=== PATIENT | male | born 1960 | race Caucasian/White ===

== ENCOUNTER 2020-09-07 13:14 | Observation (INO) ==
[2020-09-07] MEDS ORDERED: Ondansetron 4 MG/2 ML VIAL IVP ONE (13:24)
[2020-09-07] MEDS ORDERED: 0.9 % Sodium Chloride 1,000 ML IVC ONE ×2 (13:24→15:05)
[2020-09-07] MEDS ORDERED: *HR* Promethazine 25 MG/ML VIAL IM ONE (13:51)
[2020-09-07 14:15] LABS: Basophils % 0.4 %; Eosinophils # 0.1 K/mcL (0.0-0.6); Eosinophils % 2.1 %; Hematocrit 33.8 % (37.5-50.1); Hemoglobin 11.3 g/dL (12.9-16.9); Immature Granulocytes % 0.4 % (0-4); Lymphocytes % 40.2 %; Mean Corpuscular HGB Conc 33.4 g/dL (31.6-35.5); Mean Corpuscular Hemoglobin 29.5 pg (28.0-33.3); Mean Corpuscular Volume 88.3 fL (83.0-100.0); Monocytes # 0.1 K/mcL (0.0-1.3); Monocytes % 3.7 %; Neutrophils # 1.3 K/mcL (1.6-8.9); Platelet Count 342 K/mcL (140-400); Red Blood Count 3.83 M/mcL (4.19-5.50); Red Cell Distribution Width 13.8 % (11.5-14.5); Segmented Neutrophils % 53.2 %; White Blood Count 2.4 K/mcL (4.3-11.1)
[2020-09-07 14:27] LABS: Alanine Aminotransferase 13 Units/L (7-52); Albumin 3.2 g/dL (3.5-5.7); Albumin/Globulin Ratio 1.1 (1.1-2.2); Alkaline Phosphatase 103 Units/L (34-104); Aspartate Amino Transferase 13 Units/L (13-39); BUN/Creatinine Ratio 27 (6-26); Bilirubin,Direct 0.2 mg/dL (0.0-0.2); Bilirubin,Indirect 0.4 mg/dL (0.0-1.0); Bilirubin,Total 0.6 mg/dL (0.3-1.0); Blood Urea Nitrogen 18 mg/dL (8-23); Carbon Dioxide 33 mEq/L (23-29); Chloride 97 mEq/L (98-107); Glucose 252 mg/dL (70-105); Lipase 34 Units/L (11-82); Magnesium 1.9 mg/dL (1.6-2.6); Osmolality,Calculated 294 (280-300); Potassium 3.7 mEq/L (3.5-5.1); Sodium 137 mEq/L (136-145); Total Protein 6.2 g/dL (6.4-8.9); eGFR For African Americans > 60 (> 60); eGFR For Non-African Americans > 60 (> 60)
[2020-09-07] MEDS ORDERED: Naloxone 0.4 MG/ML INJ IVP PRN (15:38)
[2020-09-07] MEDS ORDERED: MOM Conc 10 ML UD.LIQ PO PRN (15:38)
[2020-09-07] MEDS ORDERED: Mag Hydrox/Al Hydrox/Simeth 30 ML UDC PO PRN (15:38)
[2020-09-07] MEDS ORDERED: Ondansetron 4 MG/2 ML VIAL IVP PRN (15:38)
[2020-09-07] MEDS ORDERED: *HR* Promethazine 25 MG/ML VIAL IM PRN (15:38)
[2020-09-07] MEDS ORDERED: *HR* HYDROcodone/Acet 5/325 mg TABLET PO PRN (15:38)
[2020-09-07] MEDS ORDERED: Acetaminophen 325 MG TABLET PO PRN (15:38)
[2020-09-07] MEDS ORDERED: D5% in Water 1,000 ML IVC PRN (16:22)
[2020-09-07] MEDS ORDERED: *HR* Dextrose 50 % in Water (Vial) 50 ML VIAL IVP PRN (16:22)
[2020-09-07] MEDS ORDERED: Dextrose Gel 15 GM/37.5 ML TUBE PO PRN ×2 (16:22)
[2020-09-07] MEDS ORDERED: Metoclopramide 10 MG/2 ML VIAL IVP PRN (16:23)
[2020-09-07] MEDS ORDERED: Scopolamine Patch 1.5 MG PATCH.TD72 TD SCH (16:30)
[2020-09-07] MEDS ORDERED: *HR* FentaNYL PATCH 25 MCG PATCH TD SCH (16:30)
[2020-09-07] MEDS: Pantoprazole 40 MG VIAL IVP SCH ×2 (16:47→18:41)
[2020-09-07 18:04] LABS: Bacteria,Urine Few per hpf (None-Few); Bilirubin,Urine Negative (Negative); Blood,Urine Negative (Negative); Clarity,Urine Clear (Clear); Color,Urine Yellow (Yellow); Glucose,Urine (UA) >=1000 mg/dL (Normal); Ketones,Urine 20 mg/dL (Negative); Leukocyte Esterase,Urine Negative (Negative); Mucus,Urine Few per lpf (None-Few); Nitrite,Urine Negative (Negative); Protein,Urine 50 mg/dL (Neg-Trace); RBC,Urine 0-3 per hpf (0-3); Specific Gravity,Urine 1.028 (1.010-1.025); Squamous Epithelial Cell,Urine Few per hpf (None-Few); Urobilinogen,Urine Normal (Normal)
[2020-09-07] MEDS: 0.9 % Sodium Chloride w KCl 20 MEQ/1,000 ML MLS IVC SCH (18:40)
[2020-09-07] MEDS: *HR* Heparin 5,000 UNIT/ML VIAL SQ SCH (18:42)
[2020-09-07] MEDS: Insulin LISPRO 300 UNITS/3 ML VIAL SQ SCH ×2 (20:47→23:27)
[2020-09-08] MEDS: Pantoprazole 40 MG VIAL IVP SCH ×2 (05:03→17:55)
[2020-09-08] MEDS: *HR* Heparin 5,000 UNIT/ML VIAL SQ SCH ×2 (05:03→17:54)
[2020-09-08] MEDS: 0.9 % Sodium Chloride w KCl 20 MEQ/1,000 ML MLS IVC SCH ×3 (06:03→16:06)
[2020-09-08 06:33] LABS: Basophils % 0.4 %; Eosinophils % 1.8 %; Hematocrit 28.6 % (37.5-50.1); Immature Granulocytes % 0.4 % (0-4); Lymphocytes # 0.8 K/mcL (0.6-4.6); Lymphocytes % 33.9 %; Mean Corpuscular HGB Conc 31.8 g/dL (31.6-35.5); Mean Corpuscular Hemoglobin 28.6 pg (28.0-33.3); Mean Corpuscular Volume 89.9 fL (83.0-100.0); Mean Platelet Volume 9.4 fL (9.4-12.4); Monocytes # 0.1 K/mcL (0.0-1.3); Monocytes % 6.2 %; Neutrophils # 1.3 K/mcL (1.6-8.9); Platelet Count 295 K/mcL (140-400); Red Blood Count 3.18 M/mcL (4.19-5.50); Red Cell Distribution Width 13.7 % (11.5-14.5); Segmented Neutrophils % 57.3 %; White Blood Count 2.3 K/mcL (4.3-11.1)
[2020-09-08 06:34] LABS: Hemoglobin 9.1 g/dL (12.9-16.9)
[2020-09-08 06:51] LABS: BUN/Creatinine Ratio 25 (6-26); Blood Urea Nitrogen 18 mg/dL (8-23); Carbon Dioxide 27 mEq/L (23-29); Chloride 103 mEq/L (98-107); Glucose 174 mg/dL (70-105); Osmolality,Calculated 292 (280-300); Phosphorous 2.8 mg/dL (2.7-4.5); Potassium 4.1 mEq/L (3.5-5.1); Sodium 138 mEq/L (136-145); eGFR For African Americans > 60 (> 60); eGFR For Non-African Americans > 60 (> 60)
[2020-09-08] MEDS: Insulin LISPRO 300 UNITS/3 ML VIAL SQ SCH ×4 (09:18→21:14)
[2020-09-08] MEDS ORDERED: GI Cocktail 40 ML EACH PO ONE (11:23)
[2020-09-08] MEDS: Haloperidol Oral Conc 10 MG/5 ML UDC PO SCH ×2 (14:52→21:27)
[2020-09-08] MEDS ORDERED: Isovue-370 500 ML BOTTLE IVP ONE (16:11)
[2020-09-09] MEDS: 0.9 % Sodium Chloride w KCl 20 MEQ/1,000 ML MLS IVC SCH (02:32)
[2020-09-09] MEDS: *HR* Heparin 5,000 UNIT/ML VIAL SQ SCH (05:48)
[2020-09-09] MEDS: Pantoprazole 40 MG VIAL IVP SCH (05:49)
[2020-09-09 07:35] LABS: Basophils % 0.5 %; Hemoglobin 8.5 g/dL (12.9-16.9); Platelet Count 289 K/mcL (140-400)
[2020-09-09 07:37] LABS: Eosinophils % 1.6 %; Hematocrit 26.9 % (37.5-50.1); Immature Granulocytes % 0.5 % (0-4); Lymphocytes # 0.8 K/mcL (0.6-4.6); Lymphocytes % 41.6 %; Mean Corpuscular HGB Conc 31.6 g/dL (31.6-35.5); Mean Corpuscular Hemoglobin 29.2 pg (28.0-33.3); Mean Corpuscular Volume 92.4 fL (83.0-100.0); Mean Platelet Volume 9.4 fL (9.4-12.4); Monocytes # 0.3 K/mcL (0.0-1.3); Monocytes % 13.5 %; Neutrophils # 0.8 K/mcL (1.6-8.9); Red Blood Count 2.91 M/mcL (4.19-5.50); Segmented Neutrophils % 42.3 %; White Blood Count 1.9 K/mcL (4.3-11.1)
[2020-09-09 07:39] LABS: BUN/Creatinine Ratio 24 (6-26); Blood Urea Nitrogen 17 mg/dL (8-23); Carbon Dioxide 27 mEq/L (23-29); Chloride 105 mEq/L (98-107); Glucose 172 mg/dL (70-105); Osmolality,Calculated 294 (280-300); Potassium 4.2 mEq/L (3.5-5.1); Sodium 139 mEq/L (136-145); eGFR For African Americans > 60 (> 60); eGFR For Non-African Americans > 60 (> 60)
[2020-09-09 08:17] LABS: Platelet Estimate Normal (Normal)
[2020-09-09] MEDS: Insulin LISPRO 300 UNITS/3 ML VIAL SQ SCH ×2 (09:08→11:48)
[2020-09-09] MEDS: Haloperidol Oral Conc 10 MG/5 ML UDC PO SCH (09:09)
[2020-09-09 11:49] VITALS: BP 134/75
[2020-09-09] MEDS ORDERED: ALPRAZolam 0.25 MG TABLET PO PRN (12:59)
== END 2020-09-09 14:51 | disposition home or self-care (01) ==
LOC: 3ANU 13:14 → EMEROOARM 13:14 → SUATTDRO 16:44 → 3ANU 17:38
PROVIDERS: ADMIT Internal Medicine; ATTEND Internal Medicine

== ENCOUNTER 2020-12-02 00:18 | Observation (INO) ==
[2020-12-02 01:07] LABS: Basophils % 0.6 %; Eosinophils % 0.9 %; Hematocrit 29.5 % (37.5-50.1); Hemoglobin 9.8 g/dL (12.9-16.9); Immature Granulocytes % 0.6 % (0-4); Lymphocytes # 0.6 K/mcL (0.6-4.6); Lymphocytes % 18.5 %; Mean Corpuscular HGB Conc 33.2 g/dL (31.6-35.5); Mean Corpuscular Hemoglobin 32.7 pg (28.0-33.3); Mean Corpuscular Volume 98.3 fL (83.0-100.0); Mean Platelet Volume 10.6 fL (9.4-12.4); Monocytes # 0.3 K/mcL (0.0-1.3); Monocytes % 9.7 %; Neutrophils # 2.3 K/mcL (1.6-8.9); Platelet Count 143 K/mcL (140-400); Red Cell Distribution Width 17.3 % (11.5-14.5); Segmented Neutrophils % 69.7 %; White Blood Count 3.3 K/mcL (4.3-11.1)
[2020-12-02 01:10] LABS: Prothrombin Time 12.1 Seconds (9.4-12.1)
[2020-12-02 01:12] LABS: Activated Partial Thrombo Time 27.9 Seconds (26.0-36.0)
[2020-12-02 01:32] LABS: Alanine Aminotransferase 14 Units/L (7-52); Albumin 3.6 g/dL (3.5-5.7); Albumin/Globulin Ratio 1.6 (1.1-2.2); Alkaline Phosphatase 82 Units/L (34-104); Aspartate Amino Transferase 21 Units/L (13-39); BUN/Creatinine Ratio 25 (6-26); Bilirubin,Total 0.3 mg/dL (0.3-1.0); Blood Urea Nitrogen 15 mg/dL (8-23); Calcium 8.6 mg/dL (8.6-10.3); Carbon Dioxide 25 mEq/L (23-29); Chloride 103 mEq/L (98-107); Globulin 2.2 g/dL (2.4-3.5); Glucose 290 mg/dL (70-105); Osmolality,Calculated 295 (280-300); Potassium 3.2 mEq/L (3.5-5.1); Sodium 137 mEq/L (136-145); Total Protein 5.8 g/dL (6.4-8.9); Troponin I < 0.03 ng/mL (< 0.04); eGFR For African Americans > 60 (> 60); eGFR For Non-African Americans > 60 (> 60)
[2020-12-02] MEDS ORDERED: Potassium Chloride Elixir 20 MEQ/15 ML UDC PO ONE (01:46)
[2020-12-02] MEDS ORDERED: *HR* LORazepam 2 MG/ML VIAL IVP ONE (02:45)
[2020-12-02] MEDS ORDERED: Naloxone 0.4 MG/ML INJ IVP PRN (04:00)
[2020-12-02] MEDS ORDERED: Ondansetron 4 MG/2 ML VIAL IVP PRN (04:00)
[2020-12-02] MEDS ORDERED: 0.9 % Sodium Chloride 1,000 ML IVC SCH (04:00)
[2020-12-02] MEDS ORDERED: Gadolinium Contrast Agent (WT Based) IV PRN (04:05)
[2020-12-02] MEDS ORDERED: Dextrose Gel 15 GM/37.5 ML TUBE PO PRN ×2 (04:10)
[2020-12-02] MEDS ORDERED: D5% in Water 1,000 ML IVC PRN (04:10)
[2020-12-02] MEDS ORDERED: *HR* Dextrose 50 % in Water (Vial) 50 ML VIAL IVP PRN (04:10)
[2020-12-02 04:39] LABS: Adenovirus Not Detected (Not Detect); Bordetella Pertussis Not Detected (Not Detect); Chlamydophila pneumoniae Not Detected (Not Detect); Coronavirus 229E Not Detected (Not Detect); Coronavirus HKU1 Not Detected (Not Detect); Coronavirus NL63 Not Detected (Not Detect); Coronavirus OC43 Not Detected (Not Detect); Human Metapneumovirus Not Detected (Not Detect); Human Rhinovirus/Enterovirus Not Detected (Not Detect); Influenza A Subtype 2009 H1 Not Detected (Not Detect); Influenza B Not Detected (Not Detect); Mycoplasma pneumoniae Not Detected (Not Detect); Parainfluenza Virus 1 Not Detected (Not Detect); Parainfluenza Virus 2 Not Detected (Not Detect); Parainfluenza Virus 3 Not Detected (Not Detect); Parainfluenza Virus 4 Not Detected (Not Detect); Respiratory Syncytial Virus Not Detected (Not Detect); SARS-CoV-2 Not Detected (Not Detect)
[2020-12-02] MEDS ORDERED: *HR* OxyCODONE Immed Rel 5 MG TABLET PO PRN (05:28)
[2020-12-02] MEDS ORDERED: *HR* FentaNYL PATCH 25 MCG PATCH TD SCH (05:30)
[2020-12-02] MEDS ORDERED: Scopolamine Patch 1.5 MG PATCH.TD72 TD SCH (05:30)
[2020-12-02 05:32] LABS: Amphetamine Screen,Urine Negative ng/mL (Cutoff=1000); Barbiturate Screen,Urine Negative ng/mL (Cutoff=200); Benzodiazepines Screen,Urine Positive ng/mL (Cutoff=200); Cannabinoid Screen,Urine Negative ng/mL (Cutoff = 50); Cocaine Screen,Urine Negative ng/mL (Cutoff= 300); Opiate Screen,Urine Negative ng/mL (Cutoff=300); Phencyclidine Screen,Urine Negative ng/mL (Cutoff=25)
[2020-12-02 06:12] LABS: Thyroid Stimulating Hormone 3.878 mcIU/mL (0.340-5.600)
[2020-12-02] MEDS: Insulin LISPRO 300 UNITS/3 ML VIAL SUBQ SCH ×4 (06:14→17:05)
[2020-12-02 06:23] LABS: Folate > 22.3 ng/mL (3.0-16.0); Vitamin B12 236 pg/mL (250-1100)
[2020-12-02 07:29] LABS: Basophils % 0.6 %; Eosinophils # 0.1 K/mcL (0.0-0.6); Eosinophils % 1.8 %; Hemoglobin 9.8 g/dL (12.9-16.9); Immature Granulocytes % 0.3 % (0-4); Lymphocytes # 0.8 K/mcL (0.6-4.6); Lymphocytes % 23.1 %; Mean Corpuscular HGB Conc 32.7 g/dL (31.6-35.5); Mean Platelet Volume 10.7 fL (9.4-12.4); Monocytes # 0.3 K/mcL (0.0-1.3); Monocytes % 8.8 %; Neutrophils # 2.2 K/mcL (1.6-8.9); Platelet Count 138 K/mcL (140-400); Red Blood Count 3.06 M/mcL (4.19-5.50); Red Cell Distribution Width 17.4 % (11.5-14.5); Segmented Neutrophils % 65.4 %; White Blood Count 3.3 K/mcL (4.3-11.1)
[2020-12-02 07:48] LABS: BUN/Creatinine Ratio 24 (6-26); Blood Urea Nitrogen 12 mg/dL (8-23); Calcium 8.7 mg/dL (8.6-10.3); Carbon Dioxide 26 mEq/L (23-29); Chloride 106 mEq/L (98-107); Glucose 140 mg/dL (70-105); Osmolality,Calculated 292 (280-300); Potassium 3.5 mEq/L (3.5-5.1); Sodium 140 mEq/L (136-145); eGFR For African Americans > 60 (> 60); eGFR For Non-African Americans > 60 (> 60)
[2020-12-02] MEDS: ALPRAZolam 0.5 MG TABLET PO SCH ×2 (08:57→21:22)
[2020-12-02] MEDS ORDERED: Thiamine (B-1) 100 MG in 0.9 % Sodium Chloride 50 ML IVPB STA (20:16)
[2020-12-02] MEDS ORDERED: polyethylene glycoL 3350 17 GM POWD.PACK PO PRN (22:30)
[2020-12-03 02:29] LABS: Basophils % 0.4 %; Eosinophils # 0.1 K/mcL (0.0-0.6); Eosinophils % 1.8 %; Hematocrit 30.7 % (37.5-50.1); Hemoglobin 10.1 g/dL (12.9-16.9); Immature Granulocytes % 0.4 % (0-4); Lymphocytes # 0.9 K/mcL (0.6-4.6); Lymphocytes % 30.6 %; Mean Corpuscular HGB Conc 32.9 g/dL (31.6-35.5); Mean Corpuscular Hemoglobin 32.5 pg (28.0-33.3); Mean Corpuscular Volume 98.7 fL (83.0-100.0); Mean Platelet Volume 10.2 fL (9.4-12.4); Monocytes # 0.2 K/mcL (0.0-1.3); Monocytes % 6.8 %; Neutrophils # 1.7 K/mcL (1.6-8.9); Platelet Count 138 K/mcL (140-400); Red Blood Count 3.11 M/mcL (4.19-5.50); Red Cell Distribution Width 17.6 % (11.5-14.5); White Blood Count 2.8 K/mcL (4.3-11.1)
[2020-12-03 02:45] LABS: BUN/Creatinine Ratio 29 (6-26); Blood Urea Nitrogen 14 mg/dL (8-23); Calcium 8.7 mg/dL (8.6-10.3); Carbon Dioxide 27 mEq/L (23-29); Chloride 107 mEq/L (98-107); Glucose 157 mg/dL (70-105); Magnesium 1.6 mg/dL (1.6-2.6); Osmolality,Calculated 294 (280-300); Potassium 3.3 mEq/L (3.5-5.1); Sodium 140 mEq/L (136-145); eGFR For African Americans > 60 (> 60); eGFR For Non-African Americans > 60 (> 60)
[2020-12-03] MEDS ORDERED: Potassium Chloride 40 MEQ, Lidocaine 1% 2 ML in 0.9 % Sodium Chloride 500 ML IVPB ONE (07:40)
[2020-12-03] MEDS ORDERED: Metoprolol XL (24 HR) Succ 50 MG TAB.ER.24H PO SCH (09:00)
[2020-12-03] MEDS ORDERED: Metoprolol XL (24 HR) Succ 25 MG TAB.ER.24H PO SCH (09:00)
[2020-12-03] MEDS: ALPRAZolam 0.5 MG TABLET PO SCH ×2 (09:22→20:12)
[2020-12-03] MEDS: BuPROPion XL (24 HR) 150 MG TABLET PO SCH (09:22)
[2020-12-03] MEDS: Insulin LISPRO 300 UNITS/3 ML VIAL SUBQ SCH ×3 (09:24→17:21)
[2020-12-03 10:19] LABS: Estimated Average Glucose 126 mg/dl
[2020-12-03] MEDS: NIFEdipine XL (24 HR) 60 MG TAB.ER.24 PO SCH (10:30)
[2020-12-03] MEDS ORDERED: ALPRAZolam 0.5 MG TABLET PO ONE (13:29)
[2020-12-03] MEDS: carvediloL 6.25 MG TABLET PO SCH (17:21)
[2020-12-04 05:15] LABS: Basophils % 0.7 %; Eosinophils # 0.1 K/mcL (0.0-0.6); Eosinophils % 2.8 %; Hematocrit 31.1 % (37.5-50.1); Hemoglobin 10.3 g/dL (12.9-16.9); Lymphocytes # 1.1 K/mcL (0.6-4.6); Lymphocytes % 38.1 %; Mean Corpuscular HGB Conc 33.1 g/dL (31.6-35.5); Mean Corpuscular Hemoglobin 32.6 pg (28.0-33.3); Mean Corpuscular Volume 98.4 fL (83.0-100.0); Mean Platelet Volume 9.6 fL (9.4-12.4); Monocytes # 0.2 K/mcL (0.0-1.3); Monocytes % 6.3 %; Neutrophils # 1.5 K/mcL (1.6-8.9); Platelet Count 129 K/mcL (140-400); Red Blood Count 3.16 M/mcL (4.19-5.50); Red Cell Distribution Width 16.6 % (11.5-14.5); Segmented Neutrophils % 52.1 %; White Blood Count 2.9 K/mcL (4.3-11.1)
[2020-12-04 05:33] LABS: BUN/Creatinine Ratio 23 (6-26); Blood Urea Nitrogen 12 mg/dL (8-23); Calcium 8.8 mg/dL (8.6-10.3); Carbon Dioxide 29 mEq/L (23-29); Chloride 105 mEq/L (98-107); Glucose 149 mg/dL (70-105); Magnesium 1.6 mg/dL (1.6-2.6); Osmolality,Calculated 291 (280-300); Potassium 3.4 mEq/L (3.5-5.1); Sodium 139 mEq/L (136-145); eGFR For African Americans > 60 (> 60); eGFR For Non-African Americans > 60 (> 60)
[2020-12-04] MEDS: NIFEdipine XL (24 HR) 60 MG TAB.ER.24 PO SCH (09:14)
[2020-12-04] MEDS: ALPRAZolam 0.5 MG TABLET PO SCH (09:14)
[2020-12-04] MEDS: BuPROPion XL (24 HR) 150 MG TABLET PO SCH (09:14)
[2020-12-04] MEDS: carvediloL 6.25 MG TABLET PO SCH (09:14)
[2020-12-04] MEDS: Insulin LISPRO 300 UNITS/3 ML VIAL SUBQ SCH ×2 (09:15→11:49)
[2020-12-04 11:30] VITALS: BP 163/89
[2020-12-07 11:22] LABS: Metanephrine, Plasma 0.15 nmol/L (0.00-0.49)
[2020-12-07 12:56] LABS: Urine Collection Volume NOT PROVIDED mL
== END 2020-12-04 13:15 | disposition home or self-care (01) ==
LOC: CDU 00:18 → EMEROOARM 00:18 → SUATTDRO 04:59 → CDU 05:36 → 3ANU 17:56
PROVIDERS: ADMIT Student in an Organized Health Care Education/Training Program; ATTEND Pharmacist

== ENCOUNTER 2021-02-15 17:23 | Observation (INO) ==
[2021-02-15] MEDS ORDERED: 0.9 % Sodium Chloride 1,000 ML IVC ONE (17:53)
[2021-02-15 18:54] LABS: Alanine Aminotransferase 11 Units/L (7-52); Albumin 4.4 g/dL (3.5-5.7); Albumin/Globulin Ratio 1.8 (1.1-2.2); Alkaline Phosphatase 115 Units/L (34-104); Aspartate Amino Transferase 14 Units/L (13-39); BUN/Creatinine Ratio 23 (6-26); Bilirubin,Direct 0.1 mg/dL (0.0-0.2); Bilirubin,Indirect 0.7 mg/dL (0.0-1.0); Bilirubin,Total 0.8 mg/dL (0.3-1.0); Blood Urea Nitrogen 15 mg/dL (8-23); Calcium 9.3 mg/dL (8.6-10.3); Carbon Dioxide 26 mEq/L (23-29); Chloride 95 mEq/L (98-107); Creatine Kinase 64 Units/L (30-223); Globulin 2.5 g/dL (2.4-3.5); Glucose 194 mg/dL (70-105); Immature Granulocytes % 0.3 % (0-4); Lactate Dehydrogenase 157 Units/L (140-271); Magnesium 1.7 mg/dL (1.6-2.6); Mean Corpuscular Volume 97.2 fL (83.0-100.0); Mean Platelet Volume 9.4 fL (9.4-12.4); Osmolality,Calculated 278 (280-300); Phosphorous 2.7 mg/dL (2.7-4.5); Potassium 3.4 mEq/L (3.5-5.1); Sodium 131 mEq/L (136-145); Total Protein 6.9 g/dL (6.4-8.9); Troponin I < 0.03 ng/mL (< 0.04); Uric Acid 2.8 mg/dL (2.3-7.6); eGFR For African Americans > 60 (> 60); eGFR For Non-African Americans > 60 (> 60)
[2021-02-15 18:59] LABS: Eosinophils % 1.1 %; Hematocrit 31.4 % (37.5-50.1); Hemoglobin 11.5 g/dL (12.9-16.9); Immature Platelets 1.9 % (1.1-6.1); Lymphocytes # 1.2 K/mcL (0.6-4.6); Mean Corpuscular HGB Conc 36.6 g/dL (31.6-35.5); Mean Corpuscular Hemoglobin 35.6 pg (28.0-33.3); Monocytes # 0.6 K/mcL (0.0-1.3); Monocytes % 16.5 %; Neutrophils # 1.8 K/mcL (1.6-8.9); Platelet Count 168 K/mcL (140-400); Red Blood Count 3.23 M/mcL (4.19-5.50); Red Cell Distribution Width 14.1 % (11.5-14.5); Segmented Neutrophils % 49.1 %; White Blood Count 3.6 K/mcL (4.3-11.1)
[2021-02-15 19:45] LABS: Bilirubin,Urine Negative (Negative); Blood,Urine Negative (Negative); Clarity,Urine Clear (Clear); Color,Urine Colorless (Yellow); Glucose,Urine (UA) >=1000 mg/dL (Normal); Ketones,Urine Negative (Negative); Leukocyte Esterase,Urine Negative (Negative); Mucus,Urine Few per lpf (None-Few); Nitrite,Urine Negative (Negative); PH,Urine 7.5 pH Units (5.0-8.0); Protein,Urine Negative (Neg-Trace); RBC,Urine 0-3 per hpf (0-3); Specific Gravity,Urine 1.011 (1.010-1.025); Urobilinogen,Urine Normal (Normal); WBC,Urine 0-3 per hpf (0-3)
[2021-02-15] MEDS ORDERED: Ringers Solution, Lactated 1,000 ML IVC SCH (20:00)
[2021-02-15] MEDS ORDERED: Ondansetron 4 MG/2 ML VIAL IVP PRN (20:48)
[2021-02-15] MEDS ORDERED: Melatonin 3 MG TABLET PO PRN (20:48)
[2021-02-15] MEDS ORDERED: Naloxone 0.4 MG/ML INJ IVP PRN (20:48)
[2021-02-15] MEDS ORDERED: Perflutren Lipid Microsphere 1.3 ML in 0.9 % Sodium Chloride 8.7 ML IVP PRN (20:50)
[2021-02-15] MEDS ORDERED: hydrALAZINE 25 MG TABLET PO ONE (20:51)
[2021-02-15] MEDS ORDERED: D5% in Water 1,000 ML IVC PRN (21:24)
[2021-02-15] MEDS ORDERED: Dextrose Gel 15 GM/37.5 ML TUBE PO PRN ×2 (21:24)
[2021-02-15] MEDS ORDERED: *HR* Dextrose 50 % in Water (Vial) 50 ML VIAL IVP PRN (21:24)
[2021-02-15] MEDS: *HR* Labetalol 20 MG/4 ML SYRINGE IVP PRN (22:16)
[2021-02-16] MEDS: Acetaminophen 325 MG TABLET PO PRN ×2 (04:43→20:06)
[2021-02-16 06:24] LABS: Basophils % 0.3 %; Eosinophils # 0.1 K/mcL (0.0-0.6); Eosinophils % 1.5 %; Hematocrit 32.5 % (37.5-50.1); Hemoglobin 11.7 g/dL (12.9-16.9); Lymphocytes # 1.2 K/mcL (0.6-4.6); Lymphocytes % 34.8 %; Mean Corpuscular Hemoglobin 35.1 pg (28.0-33.3); Mean Corpuscular Volume 97.6 fL (83.0-100.0); Mean Platelet Volume 9.5 fL (9.4-12.4); Monocytes # 0.5 K/mcL (0.0-1.3); Monocytes % 15.2 %; Neutrophils # 1.6 K/mcL (1.6-8.9); Platelet Count 130 K/mcL (140-400); Red Blood Count 3.33 M/mcL (4.19-5.50); Red Cell Distribution Width 14.4 % (11.5-14.5); Segmented Neutrophils % 48.2 %; White Blood Count 3.4 K/mcL (4.3-11.1)
[2021-02-16] MEDS: *HR* Labetalol 20 MG/4 ML SYRINGE IVP PRN (06:41)
[2021-02-16 06:42] LABS: BUN/Creatinine Ratio 15 (6-26); Blood Urea Nitrogen 10 mg/dL (8-23); Carbon Dioxide 25 mEq/L (23-29); Chloride 100 mEq/L (98-107); Glucose 156 mg/dL (70-105); Magnesium 1.8 mg/dL (1.6-2.6); Osmolality,Calculated 278 (280-300); Potassium 3.5 mEq/L (3.5-5.1); Sodium 133 mEq/L (136-145); eGFR For African Americans > 60 (> 60); eGFR For Non-African Americans > 60 (> 60)
[2021-02-16 06:48] LABS: INR 1.1; Prothrombin Time 12.3 Seconds (9.4-12.1)
[2021-02-16] MEDS: Insulin LISPRO 300 UNITS/3 ML VIAL SUBQ SCH ×3 (08:08→17:47)
[2021-02-16] MEDS: NIFEdipine XL (24 HR) 60 MG TAB.ER.24 PO SCH (08:44)
[2021-02-16] MEDS: carvediloL 6.25 MG TABLET PO SCH ×2 (08:45→17:47)
[2021-02-16] MEDS: Cyanocobalamin (B-12) 1,000 MCG TABLET PO SCH (14:27)
[2021-02-16] MEDS: *HR* Heparin 5,000 UNIT/ML VIAL SQ SCH (17:47)
[2021-02-16] MEDS ORDERED: Insulin LISPRO 300 UNITS/3 ML VIAL SUBQ SCH (21:00)
[2021-02-16] MEDS ORDERED: Insulin DETEMIR 100 UNIT/ML X5UNITS SUBQ SCH (21:00)
[2021-02-17] MEDS ORDERED: Pantoprazole 40 MG VIAL IVP ONE (01:49)
[2021-02-17 02:15] LABS: Basophils % 0.5 %; Eosinophils # 0.1 K/mcL (0.0-0.6); Eosinophils % 1.5 %; Hematocrit 33.5 % (37.5-50.1); Hemoglobin 12.1 g/dL (12.9-16.9); Immature Granulocytes % 0.3 % (0-4); Lymphocytes # 1.2 K/mcL (0.6-4.6); Lymphocytes % 31.1 %; Mean Corpuscular HGB Conc 36.1 g/dL (31.6-35.5); Mean Corpuscular Hemoglobin 35.9 pg (28.0-33.3); Mean Corpuscular Volume 99.4 fL (83.0-100.0); Mean Platelet Volume 9.7 fL (9.4-12.4); Monocytes # 0.6 K/mcL (0.0-1.3); Monocytes % 16.2 %; Platelet Count 146 K/mcL (140-400); Red Blood Count 3.37 M/mcL (4.19-5.50); Red Cell Distribution Width 14.5 % (11.5-14.5); Segmented Neutrophils % 50.4 %
[2021-02-17 02:34] LABS: BUN/Creatinine Ratio 17 (6-26); Blood Urea Nitrogen 11 mg/dL (8-23); Calcium 8.9 mg/dL (8.6-10.3); Carbon Dioxide 22 mEq/L (23-29); Chloride 101 mEq/L (98-107); Glucose 233 mg/dL (70-105); Magnesium 1.9 mg/dL (1.6-2.6); Osmolality,Calculated 281 (280-300); Phosphorous 2.5 mg/dL (2.7-4.5); Potassium 3.8 mEq/L (3.5-5.1); Sodium 132 mEq/L (136-145); eGFR For African Americans > 60 (> 60); eGFR For Non-African Americans > 60 (> 60)
[2021-02-17] MEDS: *HR* Heparin 5,000 UNIT/ML VIAL SQ SCH (05:20)
[2021-02-17] MEDS ORDERED: ONDANSETRON 8 MG PO PRN (08:30)
[2021-02-17] MEDS ORDERED: ALPRAZolam 0.5 MG TABLET PO PRN (08:30)
[2021-02-17] MEDS ORDERED: hydroCHLOROthiazide 25 MG TABLET PO SCH (09:00)
[2021-02-17] MEDS ORDERED: polyethylene glycoL 3350 17 GM POWD.PACK PO SCH (09:00)
[2021-02-17] MEDS ORDERED: BuPROPion SR (12 HR) 150 MG TABLET PO SCH (09:00)
[2021-02-17] MEDS: carvediloL 6.25 MG TABLET PO SCH (09:06)
[2021-02-17] MEDS: NIFEdipine XL (24 HR) 60 MG TAB.ER.24 PO SCH (09:07)
[2021-02-17] MEDS: Cyanocobalamin (B-12) 1,000 MCG TABLET PO SCH (09:07)
[2021-02-17] MEDS: Insulin LISPRO 300 UNITS/3 ML VIAL SUBQ SCH (09:08)
[2021-02-17 11:12] VITALS: BP 149/94
== END 2021-02-17 11:56 | disposition home health service (06) ==
LOC: EMEROOARM 17:23 → 3BNU 17:23 → SUATTDRO 20:45 → 3BNU 21:55
PROVIDERS: ADMIT Family Medicine; ATTEND Internal Medicine

== ENCOUNTER 2021-02-20 21:36 | Observation (INO) ==
[2021-02-20 22:47] LABS: Basophils % 0.2 %; Eosinophils # 0.1 K/mcL (0.0-0.6); Hematocrit 34.3 % (37.5-50.1); Hemoglobin 12.6 g/dL (12.9-16.9); Immature Granulocytes % 0.2 % (0-4); Lymphocytes # 1.6 K/mcL (0.6-4.6); Lymphocytes % 29.9 %; Mean Corpuscular HGB Conc 36.7 g/dL (31.6-35.5); Mean Corpuscular Hemoglobin 35.5 pg (28.0-33.3); Mean Corpuscular Volume 96.6 fL (83.0-100.0); Mean Platelet Volume 9.3 fL (9.4-12.4); Monocytes # 0.7 K/mcL (0.0-1.3); Monocytes % 13.9 %; Neutrophils # 2.9 K/mcL (1.6-8.9); Platelet Count 156 K/mcL (140-400); Red Blood Count 3.55 M/mcL (4.19-5.50); Red Cell Distribution Width 14.8 % (11.5-14.5); Segmented Neutrophils % 54.8 %; White Blood Count 5.2 K/mcL (4.3-11.1)
[2021-02-20 23:04] LABS: Acetaminophen < 10 mcg/mL (10-20); BUN/Creatinine Ratio 31 (6-26); Blood Urea Nitrogen 23 mg/dL (8-23); Calcium 8.8 mg/dL (8.6-10.3); Carbon Dioxide 26 mEq/L (23-29); Chloride 94 mEq/L (98-107); Ethanol < 10 mg/dL (Less than 10); Glucose 221 mg/dL (70-105); Osmolality,Calculated 280 (280-300); Potassium 3.3 mEq/L (3.5-5.1); Salicylate < 2.5 mg/dL (15.0-30.0); Sodium 130 mEq/L (136-145); Troponin I < 0.03 ng/mL (< 0.04); eGFR For African Americans > 60 (> 60); eGFR For Non-African Americans > 60 (> 60)
[2021-02-21] MEDS ORDERED: 0.9 % Sodium Chloride 500 ML IVC ONE (00:30)
[2021-02-21] MEDS ORDERED: Melatonin 3 MG TABLET PO PRN (02:22)
[2021-02-21] MEDS ORDERED: Naloxone 0.4 MG/ML INJ IVP PRN (02:22)
[2021-02-21] MEDS ORDERED: Ondansetron 4 MG/2 ML VIAL IVP PRN (02:22)
[2021-02-21] MEDS ORDERED: Acetaminophen 325 MG TABLET PO PRN (02:22)
[2021-02-21] MEDS ORDERED: *HR* LORazepam 2 MG/ML VIAL IVP PRN (02:24)
[2021-02-21] MEDS ORDERED: ALPRAZolam 0.5 MG TABLET PO PRN (02:25)
[2021-02-21] MEDS: 0.9 % Sodium Chloride 1,000 ML IVC SCH ×2 (03:29→21:15)
[2021-02-21] MEDS ORDERED: *HR* Dextrose 50 % in Water (Vial) 50 ML VIAL IVP PRN (03:41)
[2021-02-21] MEDS ORDERED: Dextrose Gel 15 GM/37.5 ML TUBE PO PRN ×2 (03:41)
[2021-02-21] MEDS ORDERED: D5% in Water 1,000 ML IVC PRN (03:41)
[2021-02-21 04:16] LABS: Basophils % 0.2 %; Eosinophils # 0.1 K/mcL (0.0-0.6); Eosinophils % 1.4 %; Hematocrit 33.6 % (37.5-50.1); Hemoglobin 12.1 g/dL (12.9-16.9); Immature Granulocytes % 0.2 % (0-4); Lymphocytes # 1.5 K/mcL (0.6-4.6); Lymphocytes % 33.6 %; Mean Corpuscular Hemoglobin 35.4 pg (28.0-33.3); Mean Corpuscular Volume 98.2 fL (83.0-100.0); Mean Platelet Volume 9.5 fL (9.4-12.4); Monocytes # 0.6 K/mcL (0.0-1.3); Monocytes % 13.7 %; Neutrophils # 2.2 K/mcL (1.6-8.9); Platelet Count 145 K/mcL (140-400); Red Blood Count 3.42 M/mcL (4.19-5.50); Red Cell Distribution Width 14.9 % (11.5-14.5); Segmented Neutrophils % 50.9 %; White Blood Count 4.4 K/mcL (4.3-11.1)
[2021-02-21 04:34] LABS: Alanine Aminotransferase 14 Units/L (7-52); Albumin 4.1 g/dL (3.5-5.7); Albumin/Globulin Ratio 1.6 (1.1-2.2); Alkaline Phosphatase 129 Units/L (34-104); Aspartate Amino Transferase 15 Units/L (13-39); BUN/Creatinine Ratio 32 (6-26); Bilirubin,Total 1.1 mg/dL (0.3-1.0); Blood Urea Nitrogen 20 mg/dL (8-23); Calcium 8.8 mg/dL (8.6-10.3); Carbon Dioxide 28 mEq/L (23-29); Chloride 94 mEq/L (98-107); Globulin 2.6 g/dL (2.4-3.5); Glucose 193 mg/dL (70-105); Osmolality,Calculated 278 (280-300); Potassium 3.1 mEq/L (3.5-5.1); Sodium 130 mEq/L (136-145); Total Protein 6.7 g/dL (6.4-8.9); eGFR For African Americans > 60 (> 60); eGFR For Non-African Americans > 60 (> 60)
[2021-02-21] MEDS: *HR* Heparin 5,000 UNIT/ML VIAL SQ SCH ×2 (04:50→17:18)
[2021-02-21] MEDS ORDERED: hydroCHLOROthiazide 25 MG TABLET PO SCH (09:00)
[2021-02-21] MEDS: Insulin LISPRO 300 UNITS/3 ML VIAL SUBQ SCH ×3 (09:02→17:19)
[2021-02-21] MEDS: carvediloL 6.25 MG TABLET PO SCH ×2 (09:03→17:20)
[2021-02-21] MEDS: polyethylene glycoL 3350 17 GM POWD.PACK PO SCH ×2 (09:05→09:19)
[2021-02-21] MEDS: NIFEdipine XL (24 HR) 60 MG TAB.ER.24 PO SCH (09:05)
[2021-02-21] MEDS: Cyanocobalamin (B-12) 1,000 MCG TABLET PO SCH (09:05)
[2021-02-21] MEDS: BuPROPion SR (12 HR) 150 MG TABLET PO SCH (09:06)
[2021-02-21 10:46] LABS: Bilirubin,Urine Negative (Negative); Blood,Urine Negative (Negative); Clarity,Urine Clear (Clear); Color,Urine Light-Yellow (Yellow); Glucose,Urine (UA) >=1000 mg/dL (Normal); Hyaline Casts,Urine Few per lpf (None Seen); Ketones,Urine 10 mg/dL (Negative); Leukocyte Esterase,Urine Negative (Negative); Mucus,Urine Few per lpf (None-Few); Nitrite,Urine Negative (Negative); PH,Urine 6.5 pH Units (5.0-8.0); Protein,Urine Trace mg/dL (Neg-Trace); RBC,Urine 0-3 per hpf (0-3); Specific Gravity,Urine 1.026 (1.010-1.025); Urobilinogen,Urine Normal (Normal); WBC,Urine 0-3 per hpf (0-3)
[2021-02-21 10:52] LABS: Amphetamine Screen,Urine Negative ng/mL (Cutoff=1000); Barbiturate Screen,Urine Negative ng/mL (Cutoff=200); Benzodiazepines Screen,Urine Positive ng/mL (Cutoff=200); Cannabinoid Screen,Urine Positive ng/mL (Cutoff = 50); Cocaine Screen,Urine Negative ng/mL (Cutoff= 300); Opiate Screen,Urine Negative ng/mL (Cutoff=300); Phencyclidine Screen,Urine Negative ng/mL (Cutoff=25)
[2021-02-21] MEDS ORDERED: Gadolinium Contrast Agent (WT Based) IV PRN (12:09)
[2021-02-21] MEDS ORDERED: Insulin LISPRO 300 UNITS/3 ML VIAL SUBQ SCH (21:00)
[2021-02-22] MEDS ORDERED: Scopolamine Patch 1.5 MG PATCH.TD72 TD PRN (01:54)
[2021-02-22] MEDS ORDERED: Haloperidol Oral Conc 10 MG/5 ML UDC PO PRN (01:54)
[2021-02-22] MEDS ORDERED: ONDANSETRON 8 MG PO PRN (01:54)
[2021-02-22] MEDS ORDERED: Loratadine/Pseudophed (12 HR) 1 EACH TABLET PO PRN (02:23)
[2021-02-22 04:50] LABS: Basophils % 0.3 %; Eosinophils % 1.1 %; Hematocrit 31.5 % (37.5-50.1); Hemoglobin 11.6 g/dL (12.9-16.9); Immature Granulocytes % 0.3 % (0-4); Lymphocytes # 1.2 K/mcL (0.6-4.6); Lymphocytes % 30.9 %; Mean Corpuscular HGB Conc 36.8 g/dL (31.6-35.5); Mean Corpuscular Hemoglobin 36.7 pg (28.0-33.3); Mean Corpuscular Volume 99.7 fL (83.0-100.0); Monocytes # 0.5 K/mcL (0.0-1.3); Monocytes % 12.7 %; Neutrophils # 2.1 K/mcL (1.6-8.9); Platelet Count 133 K/mcL (140-400); Red Blood Count 3.16 M/mcL (4.19-5.50); Red Cell Distribution Width 14.9 % (11.5-14.5); Segmented Neutrophils % 54.7 %; White Blood Count 3.8 K/mcL (4.3-11.1)
[2021-02-22 05:01] LABS: BUN/Creatinine Ratio 23 (6-26); Blood Urea Nitrogen 13 mg/dL (8-23); Calcium 8.3 mg/dL (8.6-10.3); Carbon Dioxide 25 mEq/L (23-29); Chloride 102 mEq/L (98-107); Glucose 227 mg/dL (70-105); Osmolality,Calculated 285 (280-300); Potassium 3.7 mEq/L (3.5-5.1); Sodium 134 mEq/L (136-145); eGFR For African Americans > 60 (> 60); eGFR For Non-African Americans > 60 (> 60)
[2021-02-22] MEDS: *HR* Heparin 5,000 UNIT/ML VIAL SQ SCH (05:22)
[2021-02-22] MEDS: 0.9 % Sodium Chloride 1,000 ML IVC SCH (05:32)
[2021-02-22] MEDS: Insulin LISPRO 300 UNITS/3 ML VIAL SUBQ SCH ×2 (07:57→11:58)
[2021-02-22] MEDS: carvediloL 6.25 MG TABLET PO SCH (07:59)
[2021-02-22] MEDS: Cyanocobalamin (B-12) 1,000 MCG TABLET PO SCH (08:00)
[2021-02-22] MEDS: NIFEdipine XL (24 HR) 60 MG TAB.ER.24 PO SCH (08:00)
[2021-02-22] MEDS: polyethylene glycoL 3350 17 GM POWD.PACK PO SCH (08:00)
[2021-02-22] MEDS: BuPROPion SR (12 HR) 150 MG TABLET PO SCH (08:01)
[2021-02-22 10:40] VITALS: BP 148/102
== END 2021-02-22 16:19 | disposition home health service (06) ==
LOC: EMEROOARM 21:36 → 2ANU 21:36
PROVIDERS: ADMIT Internal Medicine; ATTEND Internal Medicine

== ENCOUNTER 2021-02-25 01:09 | Inpatient (IN) ==
[2021-02-25 02:00] LABS: BUN/Creatinine Ratio 20 (6-26); Blood Urea Nitrogen 14 mg/dL (8-23); Carbon Dioxide 28 mEq/L (23-29); Chloride 89 mEq/L (98-107); Glucose 272 mg/dL (70-105); Magnesium 1.6 mg/dL (1.6-2.6); Osmolality,Calculated 272 (280-300); Potassium 3.7 mEq/L (3.5-5.1); Sodium 126 mEq/L (136-145); eGFR For African Americans > 60 (> 60); eGFR For Non-African Americans > 60 (> 60)
[2021-02-25 02:13] LABS: Basophils % 0.2 %; Eosinophils % 0.7 %; Hematocrit 34.7 % (37.5-50.1); Hemoglobin 12.8 g/dL (12.9-16.9); Immature Granulocytes % 0.4 % (0-4); Lymphocytes # 1.3 K/mcL (0.6-4.6); Lymphocytes % 23.7 %; Mean Corpuscular HGB Conc 36.9 g/dL (31.6-35.5); Mean Corpuscular Hemoglobin 35.7 pg (28.0-33.3); Mean Corpuscular Volume 96.7 fL (83.0-100.0); Mean Platelet Volume 8.9 fL (9.4-12.4); Monocytes # 0.8 K/mcL (0.0-1.3); Neutrophils # 3.4 K/mcL (1.6-8.9); Platelet Count 178 K/mcL (140-400); Red Blood Count 3.59 M/mcL (4.19-5.50); Red Cell Distribution Width 14.8 % (11.5-14.5); White Blood Count 5.6 K/mcL (4.3-11.1)
[2021-02-25] MEDS ORDERED: 0.9 % Sodium Chloride 500 ML IVC ONE (02:15)
[2021-02-25 02:16] LABS: Bacteria,Urine Many per hpf (None-Few); Bilirubin,Urine Negative (Negative); Blood,Urine Negative (Negative); Budding Yeast,Urine Many per hpf (None Seen); Clarity,Urine Ex.Turbid (Clear); Color,Urine Yellow (Yellow); Glucose,Urine (UA) >=1000 mg/dL (Normal); Ketones,Urine Negative (Negative); Leukocyte Esterase,Urine Moderate (Negative); Mucus,Urine Few per lpf (None-Few); Nitrite,Urine Positive (Negative); PH,Urine 7.5 pH Units (5.0-8.0); Protein,Urine Trace mg/dL (Neg-Trace); Specific Gravity,Urine 1.018 (1.010-1.025); Urobilinogen,Urine Normal (Normal); WBC,Urine TNTC per hpf (0-3)
[2021-02-25 02:27] LABS: Amphetamine Screen,Urine Negative ng/mL (Cutoff=1000); Barbiturate Screen,Urine Negative ng/mL (Cutoff=200); Benzodiazepines Screen,Urine Negative ng/mL (Cutoff=200); Cannabinoid Screen,Urine Negative ng/mL (Cutoff = 50); Cocaine Screen,Urine Negative ng/mL (Cutoff= 300); Opiate Screen,Urine Negative ng/mL (Cutoff=300); Phencyclidine Screen,Urine Negative ng/mL (Cutoff=25)
[2021-02-25] MEDS: cefTRIAXone 1,000 MG in 0.9 % Sodium Chloride Mini Bag 100 ML IVPB SCH (03:36)
[2021-02-25] MEDS ORDERED: *HR* HYDROcodone/Acet 5/325 mg TABLET PO PRN (04:54)
[2021-02-25] MEDS ORDERED: *HR* OxyCODONE Immed Rel 5 MG TABLET PO PRN (04:54)
[2021-02-25] MEDS ORDERED: Naloxone 0.4 MG/ML INJ IVP PRN (04:54)
[2021-02-25] MEDS ORDERED: Acetaminophen 325 MG TABLET PO PRN (04:54)
[2021-02-25] MEDS ORDERED: *HR* Dextrose 50 % in Water (Vial) 50 ML VIAL IVP PRN (05:29)
[2021-02-25] MEDS ORDERED: Dextrose Gel 15 GM/37.5 ML TUBE PO PRN ×2 (05:29)
[2021-02-25] MEDS ORDERED: D5% in Water 1,000 ML IVC PRN (05:29)
[2021-02-25] MEDS ORDERED: *HR* LORazepam 2 MG/ML VIAL ONE (05:36)
[2021-02-25] MEDS ORDERED: *HR* LORazepam 2 MG/ML VIAL IVP STA (05:45)
[2021-02-25] MEDS ORDERED: levETIRAcetam 1,000 MG in 0.9 % Sodium Chloride 100 ML IVPB ONE (05:49)
[2021-02-25] MEDS: 0.9 % Sodium Chloride 1,000 ML IVC SCH ×2 (06:40→19:48)
[2021-02-25] MEDS: *HR* Heparin 5,000 UNIT/ML VIAL SQ SCH ×2 (06:42→18:37)
[2021-02-25] MEDS ORDERED: Insulin LISPRO 300 UNITS/3 ML VIAL SUBQ SCH (07:30)
[2021-02-25] MEDS ORDERED: BuPROPion SR (12 HR) 150 MG TABLET PO SCH (09:00)
[2021-02-25] MEDS: *HR* LORazepam 2 MG/ML VIAL IVP PRN ×3 (09:12→21:12)
[2021-02-25] MEDS: Insulin LISPRO 300 UNITS/3 ML VIAL SUBQ SCH ×3 (09:19→15:55)
[2021-02-25] MEDS: hydrALAZINE 25 MG TABLET PO SCH ×3 (12:04→16:00)
[2021-02-25] MEDS ORDERED: Scopolamine Patch 1.5 MG PATCH.TD72 TD PRN (13:44)
[2021-02-25] MEDS ORDERED: *HR* LORazepam 2 MG/ML VIAL IVP PRN (14:43)
[2021-02-25] MEDS: carvediloL 25 MG TABLET PO SCH ×2 (15:06→16:00)
[2021-02-25] MEDS: NIFEdipine XL (24 HR) 60 MG TAB.ER.24 PO SCH (15:07)
[2021-02-25] MEDS ORDERED: levETIRAcetam 250 MG TABLET PO SCH (18:00)
[2021-02-25] MEDS: levETIRAcetam 750 MG in 0.9 % Sodium Chloride 100 ML IVPB SCH (20:58)
[2021-02-26 01:57] LABS: Basophils % 0.1 %; Platelet Count 211 K/mcL (140-400)
[2021-02-26 01:58] LABS: Eosinophils % 0.1 %; Immature Granulocytes % 0.4 % (0-4); Lymphocytes # 1.2 K/mcL (0.6-4.6); Lymphocytes % 13.1 %; Mean Corpuscular HGB Conc 36.8 g/dL (31.6-35.5); Mean Corpuscular Hemoglobin 35.7 pg (28.0-33.3); Mean Corpuscular Volume 96.9 fL (83.0-100.0); Mean Platelet Volume 9.2 fL (9.4-12.4); Monocytes # 1.3 K/mcL (0.0-1.3); Monocytes % 13.9 %; Neutrophils # 6.7 K/mcL (1.6-8.9); Red Blood Count 3.92 M/mcL (4.19-5.50); Segmented Neutrophils % 72.4 %; White Blood Count 9.3 K/mcL (4.3-11.1)
[2021-02-26 02:31] LABS: Alanine Aminotransferase 13 Units/L (7-52); Albumin 4.4 g/dL (3.5-5.7); Albumin/Globulin Ratio 1.6 (1.1-2.2); Alkaline Phosphatase 137 Units/L (34-104); Aspartate Amino Transferase 16 Units/L (13-39); BUN/Creatinine Ratio 33 (6-26); Bilirubin,Total 1.3 mg/dL (0.3-1.0); Blood Urea Nitrogen 17 mg/dL (8-23); Calcium 9.6 mg/dL (8.6-10.3); Carbon Dioxide 23 mEq/L (23-29); Chloride 91 mEq/L (98-107); Globulin 2.8 g/dL (2.4-3.5); Glucose 185 mg/dL (70-105); Osmolality,Calculated 270 (280-300); Potassium 3.6 mEq/L (3.5-5.1); Sodium 127 mEq/L (136-145); Thyroid Stimulating Hormone 1.738 mcIU/mL (0.340-5.600); Total Protein 7.2 g/dL (6.4-8.9); eGFR For African Americans > 60 (> 60); eGFR For Non-African Americans > 60 (> 60)
[2021-02-26] MEDS: cefTRIAXone 1,000 MG in 0.9 % Sodium Chloride Mini Bag 100 ML IVPB SCH (03:16)
[2021-02-26] MEDS: *HR* LORazepam 2 MG/ML VIAL IVP PRN ×2 (03:44→22:26)
[2021-02-26] MEDS: *HR* Heparin 5,000 UNIT/ML VIAL SQ SCH ×2 (04:58→18:28)
[2021-02-26 05:06] LABS: Folate 17.8 ng/mL (3.0-16.0)
[2021-02-26] MEDS: levETIRAcetam 750 MG in 0.9 % Sodium Chloride 100 ML IVPB SCH ×2 (08:34→20:33)
[2021-02-26] MEDS: Insulin LISPRO 300 UNITS/3 ML VIAL SUBQ SCH ×3 (08:39→16:26)
[2021-02-26] MEDS: hydrALAZINE 25 MG TABLET PO SCH ×3 (08:39→16:23)
[2021-02-26] MEDS: carvediloL 25 MG TABLET PO SCH ×2 (08:39→16:23)
[2021-02-26] MEDS: NIFEdipine XL (24 HR) 60 MG TAB.ER.24 PO SCH (08:40)
[2021-02-26] MEDS: Thiamine (B-1) 100 MG in 0.9 % Sodium Chloride 50 ML IVPB SCH (15:15)
[2021-02-26] MEDS ORDERED: 0.9 % Sodium Chloride 500 ML IVC ONE ×2 (21:57→22:06)
[2021-02-26] MEDS: *HR* Labetalol 20 MG/4 ML SYRINGE IVP PRN (23:25)
[2021-02-27] MEDS: cefTRIAXone 1,000 MG in 0.9 % Sodium Chloride Mini Bag 100 ML IVPB SCH (02:53)
[2021-02-27] MEDS: *HR* Heparin 5,000 UNIT/ML VIAL SQ SCH ×2 (05:48→16:25)
[2021-02-27] MEDS: *HR* Labetalol 20 MG/4 ML SYRINGE IVP PRN ×2 (06:02→16:26)
[2021-02-27 06:27] LABS: Basophils % 0.1 %; Hematocrit 34.8 % (37.5-50.1); Hemoglobin 12.8 g/dL (12.9-16.9); Immature Granulocytes % 0.1 % (0-4); Lymphocytes # 1.6 K/mcL (0.6-4.6); Lymphocytes % 19.4 %; Mean Corpuscular HGB Conc 36.8 g/dL (31.6-35.5); Mean Corpuscular Hemoglobin 36.7 pg (28.0-33.3); Mean Corpuscular Volume 99.7 fL (83.0-100.0); Mean Platelet Volume 9.3 fL (9.4-12.4); Monocytes # 1.2 K/mcL (0.0-1.3); Monocytes % 14.1 %; Neutrophils # 5.4 K/mcL (1.6-8.9); Platelet Count 202 K/mcL (140-400); Red Blood Count 3.49 M/mcL (4.19-5.50); Red Cell Distribution Width 15.6 % (11.5-14.5); Segmented Neutrophils % 66.3 %; White Blood Count 8.2 K/mcL (4.3-11.1)
[2021-02-27 06:45] LABS: Alanine Aminotransferase 12 Units/L (7-52); Albumin 3.9 g/dL (3.5-5.7); Albumin/Globulin Ratio 1.5 (1.1-2.2); Alkaline Phosphatase 108 Units/L (34-104); Aspartate Amino Transferase 14 Units/L (13-39); BUN/Creatinine Ratio 57 (6-26); Bilirubin,Total 0.8 mg/dL (0.3-1.0); Blood Urea Nitrogen 36 mg/dL (8-23); Calcium 9.5 mg/dL (8.6-10.3); Carbon Dioxide 22 mEq/L (23-29); Chloride 99 mEq/L (98-107); Globulin 2.6 g/dL (2.4-3.5); Glucose 242 mg/dL (70-105); Osmolality,Calculated 294 (280-300); Potassium 3.4 mEq/L (3.5-5.1); Sodium 134 mEq/L (136-145); Total Protein 6.5 g/dL (6.4-8.9); eGFR For African Americans > 60 (> 60); eGFR For Non-African Americans > 60 (> 60)
[2021-02-27] MEDS ORDERED: Potassium Chloride 20 MEQ, Lidocaine 1% 2 ML in 0.9 % Sodium Chloride 250 ML IVPB ONE (07:47)
[2021-02-27] MEDS: hydrALAZINE 25 MG TABLET PO SCH ×3 (08:11→16:18)
[2021-02-27] MEDS: carvediloL 25 MG TABLET PO SCH ×2 (08:12→16:19)
[2021-02-27] MEDS: Insulin LISPRO 300 UNITS/3 ML VIAL SUBQ SCH ×3 (08:12→16:18)
[2021-02-27] MEDS: NIFEdipine XL (24 HR) 60 MG TAB.ER.24 PO SCH (08:12)
[2021-02-27] MEDS: Thiamine (B-1) 100 MG in 0.9 % Sodium Chloride 50 ML IVPB SCH (08:31)
[2021-02-27] MEDS: levETIRAcetam 750 MG in 0.9 % Sodium Chloride 100 ML IVPB SCH ×2 (09:30→20:11)
[2021-02-27] MEDS ORDERED: 0.9 % Sodium Chloride 1,000 ML IVC SCH (10:15)
[2021-02-27] MEDS ORDERED: levETIRAcetam 1,000 MG in 0.9 % Sodium Chloride 100 ML IVPB ONE (10:24)
[2021-02-27] MEDS ORDERED: Thiamine (B-1) 100 MG in 0.9 % Sodium Chloride 50 ML IVPB ONE (11:25)
[2021-02-27] MEDS: *HR* LORazepam 2 MG/ML VIAL IVP PRN (14:02)
[2021-02-27] MEDS: Nystatin SUSP 5 ML UD.LIQ PO SCH (20:14)
[2021-02-28] MEDS: *HR* Labetalol 20 MG/4 ML SYRINGE IVP PRN (04:40)
[2021-02-28 05:07] LABS: Basophils % 0.2 %; Eosinophils % 0.2 %; Hematocrit 33.2 % (37.5-50.1); Hemoglobin 11.8 g/dL (12.9-16.9); Immature Granulocytes % 0.2 % (0-4); Lymphocytes # 1.3 K/mcL (0.6-4.6); Lymphocytes % 23.3 %; Mean Corpuscular HGB Conc 35.5 g/dL (31.6-35.5); Mean Corpuscular Hemoglobin 36.3 pg (28.0-33.3); Mean Corpuscular Volume 102.2 fL (83.0-100.0); Mean Platelet Volume 9.3 fL (9.4-12.4); Monocytes # 0.8 K/mcL (0.0-1.3); Monocytes % 14.1 %; Neutrophils # 3.4 K/mcL (1.6-8.9); Platelet Count 145 K/mcL (140-400); Red Blood Count 3.25 M/mcL (4.19-5.50); White Blood Count 5.5 K/mcL (4.3-11.1)
[2021-02-28] MEDS: *HR* Heparin 5,000 UNIT/ML VIAL SQ SCH ×2 (05:23→17:03)
[2021-02-28 05:25] LABS: BUN/Creatinine Ratio 43 (6-26); Blood Urea Nitrogen 23 mg/dL (8-23); Calcium 8.8 mg/dL (8.6-10.3); Carbon Dioxide 22 mEq/L (23-29); Chloride 105 mEq/L (98-107); Glucose 218 mg/dL (70-105); Osmolality,Calculated 294 (280-300); Potassium 3.6 mEq/L (3.5-5.1); Sodium 137 mEq/L (136-145); eGFR For African Americans > 60 (> 60); eGFR For Non-African Americans > 60 (> 60)
[2021-02-28] MEDS: hydrALAZINE 25 MG TABLET PO SCH ×3 (06:51→16:55)
[2021-02-28] MEDS: NIFEdipine XL (24 HR) 60 MG TAB.ER.24 PO SCH (07:35)
[2021-02-28] MEDS: carvediloL 25 MG TABLET PO SCH ×2 (07:35→16:55)
[2021-02-28] MEDS: Nystatin SUSP 5 ML UD.LIQ PO SCH ×3 (07:35→17:03)
[2021-02-28] MEDS: levETIRAcetam 750 MG in 0.9 % Sodium Chloride 100 ML IVPB SCH (07:36)
[2021-02-28] MEDS: Insulin LISPRO 300 UNITS/3 ML VIAL SUBQ SCH ×3 (07:44→16:55)
[2021-02-28] MEDS: Thiamine (B-1) 100 MG in 0.9 % Sodium Chloride 50 ML IVPB SCH (09:24)
[2021-02-28] MEDS ORDERED: Gadolinium Contrast Agent (WT Based) IV PRN (09:52)
[2021-02-28] MEDS ORDERED: 0.9 % Sodium Chloride 1,000 ML IVC SCH (10:15)
[2021-02-28] MEDS: *HR* LORazepam 2 MG/ML VIAL IVP PRN (14:28)
[2021-02-28 19:03] VITALS: BP 120/74
== END 2021-02-28 20:12 | disposition short-term general hospital (02) | DRG 100 ==
LOC: 2NENU 01:09 → EMEROOARM 01:09 → 2NENU 03:50 → SUATTDRO 02-26 17:01
PROVIDERS: ADMIT Internal Medicine; ATTEND Family Medicine